=== PATIENT | male | born 1990 | race Caucasian/White ===

== ENCOUNTER 2017-12-23 06:39 | Day surgery (SDC) | payer MEDICAID ==
[~2017-12-23 06:39] MED LIST: Aloe Vera/Sodium Chloride Gel 14.1 GM Tube ONE; Dexamethasone 4 MG/ML 5 ML MDV ONE; EPINEPHrine 1 MG/ML SDV ONE; Lidocaine 1% 20 ML MDV ONE; Lidocaine 2% with EPINEPHrine 1:100,000 20 ML MDV ONE; Oxymetazoline 0.05% Nasal Spray 15 ML Bottle ONE; Thrombin (Bovine) 5,000 Unit Kit ONE
--- NOTE | 2017-12-23 07:37 | PCM.PREANE ---
Preanesthetic Assessment - Anesthesia/Transfusion/Family Hx Anesthesia History: Prior Anesthesia Without Reaction Transfusion History: No Prior Transfusion(s) - Review of Systems General: No Symptoms Pulmonary: No Symptoms Cardiovascular: No Symptoms Gastrointestinal: No Symptoms Neurological: No Symptoms Other: Reports: None - Physical Assessment NPO Status Date: 12/22/17 Height: 1.73 m Weight: 75.296 kg ASA Class: 2 Mental Status: Alert & Oriented x3 Airway Class: Mallampati = 1 Dentition: Reports: Normal Dentition ROM/Head Extension: Full Lungs: Clear to Auscultation, Normal Respiratory Effort, Rhonchi Cardiovascular: Regular Rhythm - Allergies Allergies/Adverse Reactions: Allergies Allergy/AdvReac Type Severity Reaction Status Date / Time No Known Allergies Allergy Verified 12/21/17 09:40 - Anesthesia Plan Pre-Op Medication Ordered: None - Acknowledgements Anesthesia Type Planned: General Anesthesia Pt an Appropriate Candidate for the Planned Anesthesia: Yes Alternatives and Risks of Anesthesia Discussed w Pt/Guardian: Yes Pt/Guardian Understands and Agrees with Anesthesia Plan: Yes Additional Comments: PMH: hx of asthma, no recent exacerbations, on advair (beta adrenergic blus inhaled steroid) bid for supression. PLAN: GET PreAnesthesia Questionnaire - Past Health History Medical/Surgical History: Denies Medical/Surgical History HEENT History: Reports: None Respiratory History: Reports: Asthma - Past Surgical History Head Surgeries/Procedures: Reports: None HEENT Surgical History: Reports: Naso-Sinus Surgery Other HEENT Surgeries/Procedures: nasal surgery for deviated septum - SUBSTANCE USE Smoking Status *Q: Current Some Day Smoker Tobacco Use Within Last Twelve Months: Cigarettes Recreational Drug Use History: No - HOME MEDS Home Medications: Home Meds Albuterol [Ventolin HFA] 1 - 2 puff INH ASDIRECTED PRN 12/21/17 [History] Fluticasone/Salmeterol [Advair 100-50] 1 inhalation INH BID 12/21/17 [History] - CURRENT (IN HOUSE) MEDS Current Meds: Current Medications Discontinued Medications Dexamethasone (Dexamethasone) Confirm Administered Dose 20 mg .ROUTE .STK-MED ONE Stop: 12/22/17 14:15 Epinephrine HCl (Adrenalin) Confirm Administered Dose 3 mg .ROUTE .STK-MED ONE Stop: 12/22/17 14:13 Lidocaine HCl (Xylocaine 1%) Confirm Administered Dose 20 ml .ROUTE .STK-MED ONE Stop: 12/22/17 14:15 Lidocaine HCl (Xylocaine 1%) Confirm Administered Dose 20 ml .ROUTE .STK-MED ONE Stop: 12/22/17 14:36 Lidocaine/Epinephrine (Xylocaine 2% With Epinephrine 1:100,000) Confirm Administered Dose 20 ml .ROUTE .STK-MED ONE Stop: 12/22/17 14:15 Lidocaine/Epinephrine (Xylocaine 2% With Epinephrine 1:100,000) Confirm Administered Dose 20 ml .ROUTE .STK-MED ONE Stop: 12/22/17 14:36 Oxymetazoline HCl (Afrin Original 0.05% Nasal [place]) Confirm Administered Dose 30 ml .ROUTE .STK-MED ONE Stop: 12/22/17 14:14 Oxymetazoline HCl (Afrin Original 0.05% Nasal [place]) Confirm Administered Dose 15 ml .ROUTE .STK-MED ONE Stop: 12/22/17 14:35 Sodium Chloride ([place] Saline Nasal Gel) Confirm Administered Dose 14.1 gm .ROUTE .STK-MED ONE Stop: 12/22/17 14:36 Thrombin (Thrombin-Jmi) Confirm Administered Dose 5,000 unit .ROUTE .STK-MED ONE Stop: 12/22/17 14:13
[2017-12-23] MEDS ORDERED: Propofol 200 MG/20 ML SDV ONE ×10 (08:33→13:34)
[2017-12-23] MEDS ORDERED: Dexamethasone 4 MG/ML 5 ML MDV ONE (08:38)
[2017-12-23] MEDS ORDERED: Glycopyrrolate 0.2 MG/ML SDV ONE (08:38)
[2017-12-23] MEDS ORDERED: Lidocaine 2% 5 ML SDV ONE (08:38)
[2017-12-23] MEDS ORDERED: Rocuronium 10 MG/ML 10 ML Syringe ONE (08:38)
[2017-12-23] MEDS ORDERED: Ondansetron 4 MG/2 ML SDV ONE (08:38)
[2017-12-23] MEDS ORDERED: Midazolam 1 MG/ML 2 ML SDV ONE (08:39)
[2017-12-23] MEDS ORDERED: fentaNYL 250 MCG/5 ML SDV ONE ×4 (08:39→13:00)
[2017-12-23] MEDS ORDERED: Lactated Ringers 1,000 ML IV SCH (09:00)
[2017-12-23] MEDS ORDERED: Sugammadex Sodium 200 MG/2 ML VIAL ONE (09:20)
[2017-12-23] MEDS ORDERED: Sodium Chloride 0.9% 40 ML ONE (09:27)
--- NOTE | 2017-12-23 09:40 | PCM.HPR ---
H & P Addendum review - H & P Addendum Review Date of Original H & P: 12/21/17 Date Reviewed: 12/23/17 Time Reviewed: 09:00 Patient was Examined: No Changes
--- NOTE | 2017-12-23 10:04 | PCM.OPNOTE ---
- General Post-Op/Procedure Note Condition: Good Free Text/Narrative:: Diagnosis: Nasal obstruction, deviated nasal septum, chronic sinusitis, inferior turbinate hypertrophy, rhinitis Procedure: Coblation reduction of bilateral inferior turbinates [ CPT 58080], nasal septoplasty [99687], navigation [27705], bilateral maxillary antrostomy[ 92993] bilateral anterior and posterior ethmoidectomy [ 40402], left sphenoidotomy [ 72514] left frontal sinus exploration with removal of tissue, right frontal sinus exploration [ 81034]. Surgeon: Caitlin Mahoney MD Anesthesia: GA Anesthesiologist:Tadeo ERVIN Date of procedure:12/23/2017 Indications: Nasal obstruction, deviated nasal septum, chronic sinusitis, inferior turbinate hypertrophy, rhinitis. The patient had tried maximal medical therapy orally and topically and remained symptomatic hence he was consented for the procedure as above Findings: Bilateral inferior turbinate hypertrophy; right sided deviation of the nasal septal cartilage.vertical fracture of the cartilage overlying the deviated part. Posterior left-sided vomerine spur; missing inferior cartilaginous strip posteriorly and along the maxillary crest. Left - maxillary sinus, ethmoid sinus and sphenoid sinus thick mucus; frontal recess polypoid tissue -removed. Right - minimal edema of right maxillary sinus mucosa. Ethmoid mucosa and frontal recess mucosa healthy. An informed consent was obtained. A time out was performed and the patient was brought back to the operating room. Gen. anesthesia was administered with an endotracheal tube. The patient was then prepped and draped in a standard fashion. A 0 degree rigid nasal endoscope was used to examine bilateral nasal cavities and photo documentation was obtained. Bilateral inferior turbinates were infilatrated with 1% lidocaine - 2 mls were injected on each side. The left inferior turbinate was addressed first. A PTR coblation wand with tip dipped in AYR Gel was used at setting of 6 :2 for Coblation and coagulation respectively. The point of entry was coagulated and wand was inserted till the second marking. Two keller were created in the single channel. The inferior turbinate was visibly shrunk. Similar procedure was repeated on the right side with visible reduction in size of turbinates. Bilateral nasal cavities were then packed with oxymetazoline 0.05% soaked cottonoid pledgets. After an appropriate period of decongestion the pledgets were removed. Nasal septum was infiltrated with 2% lidocaine 1: 100, 000 epinephrine in a standard fashion-a total of 4 mils was used. Bilateral nasal cavities were packed with oxymetazoline 0.05% soaked cottonoid pledgets. Bilateral eyes were left exposed and lubricating ointment was inserted into the eyes. The pledgets were then removed. A left sided [place]am incision was performed. A left sided mucoperichondrial flap was elevated- dissection was commenced with 2 mm osteotome and further carried out with combination of ob and [place] elevators. Posteriorly the flap was continued as a muco periosteal flap. A posterior chondrotomy was performed. Right-sided mucoperiosteal flap was elevated. A han scissor was used and the perpendicular plate of the ethmoid was removed. The vomer along with left-sided spur was also removed. A vertical incision was made in the cartilage a few millimeters behind the mucosal incision. Contralateral mucoperichondrial flap was elevated posteriorly. Approximately 4 mm of vertical strip of deviated cartilage was resected and removed including the vertical fracture line. Subsequent to this the nasal septum was positioned towards the midline. Flap incision was sutured with 3-0 plain gut on Steven needle. The [employer] navigation system was set up and the Tracker was fixed to the fore head as per protocol and successful registration was obtained. The left middle turbinate axilla and the head of middle turbinate were infiltrated with 2% lidocaine and 1 in 100,000 epinephrine-a total of 1 ml was used. Similar injections were performed on the right side. A cottonoid pledget soaked in 1: 10 000 epinephrine each was placed in the middle meatus, draping over the middle turbinate axilla and one in the region of the sphenoethmoid recess - this was done bilaterally. The left side was addressed first. After appropriate period of decongestion the cottonoid pledgets were removed. The middle turbinate was gently medialized with freer elevator and the 0 rigid nasal endoscope was introduced into the middle meatus. The posterior free edge of the uncinate process was identified and medialized with a ball probe. A right sided pediatric backbiter was used to remove the uncinate process at the junction of the horizontal and vertical part. A straight shot tri-cut blade with navigation attached to it was then used to debride the vertical attachment of the uncinate process up to the attachment of Agger nasi cell. A ball probe was then used to identified the left maxillary sinus ostium The horizontal part of the uncinate process was then further dissected away with a ball probe and then with a combination of microdebrider and cold steel dissection. The 30 rigid endoscope was used to examine the maxillary ostium - findings as above. The maxillary sinus was suctioned and thoroughly irrigated with saline. A 0 degree nasal endoscope was used and next the natural ostium of the left bulla ethmoidalis was identified and down fractured with a curette. Further removal of the bulla was performed with a microdebrider blade and anterior ethmoid cells were removed. The mucosa of bulla and anterior ethmoid cells was edematous. The posterior ethmoids were entered by penetrating the ground lamella at the junction of horizontal and vertical part with a curette; further dissection was carried out with a microdebrider and the posterior ethmoid cells were cleared sequentially. Dissection inferior and medial was continued posteriorly and a sphenoidotomy was performed. This was minimally enlarged inferiorly and laterally towards the posterior ethmoid cells. Mucoid secretions were suctioned. Using a 30 degree nasal endoscope the Left frontal sinus ostium was identified posterior to the agger nasi cell and anterior to the supra bullar cell. Cell partitions were removed with a thru cut and blakesly wild; polypoid mucosa was identified and removed. The left middle meatus was then finally irrigated with the warm saline and inspected with rigid endoscope. No loose bone chips were identified. At all times the position of instruments was confirmed with [employer] navigation and a combination of straight, 90 and 70 degrees suctions and ostium seekers - all navigated were used as required at appropriate times to assist with identifying landmarks and dissection. Attention was then directed towards the right side. The cottonoid pledgets were removed. The middle turbinate was gently medialized with freer elevator and the 0 rigid nasal endoscope was introduced into the middle meatus. The posterior free edge of the uncinate process was identified and medialized with a ball probe. A left sided pediatric backbiter was used to remove the uncinate process at the junction of the horizontal and vertical part. A straight shot tri-cut blade with navigation attached to it was then used to debride the vertical attachment of the uncinate process up to the attachment of Agger nasi cell. A ball probe was then used to identified the left maxillary sinus ostium The horizontal part of the uncinate process was then further dissected away with a ball probe and then with a combination of microdebrider and cold steel dissection. The 30 rigid endoscope was used to examine the maxillary ostium - findings as above. The maxillary sinus was thoroughly irrigated with saline. A 0 degree nasal endoscope was used and next the natural ostium of the left bulla ethmoidalis was identified and down fractured with a curette. Further removal of the bulla was performed with a microdebrider blade and anterior ethmoid cells were removed. The mucosa of bulla and anterior ethmoid cells was healthy. The posterior ethmoids were entered by penetrating the ground lamella at the junction of horizontal and vertical part with a curette; further dissection was carried out with a microdebrider and the posterior ethmoid cells were cleared sequentially. Right frontal recess area was inspected with 30 endoscope. Cellular partitions were removed and mucosa was healthy. The right middle meatus was then finally irrigated with the warm saline and inspected with rigid endoscope. No loose bone chips were identified. As on the left side at all times the position of instruments was confirmed with [employer] navigation and a combination of straight, 90 and 70 degrees suctions and ostium seekers - all navigated were used as required at appropriate times to assist with identifying landmarks and dissection. Post nasal space was suctioned clear of blood bilaterally and per orally. Merogel was injected in larry MM Bacitracin ointment was applied to the inferior turbinates bilaterally. Bilateral Moctezuma splints were inserted and held in place with 2.0 Prolene suture. Drip pad was applied. This concluded the procedure and the patient was turned over to the anesthesiologist for recovery. Specimens: none IV fluids: 1600 ml Blood loss: 20 mls Blood products: nil Disposition: PACU for recovery Follow up: As planned.
[2017-12-23] MEDS ORDERED: Labetalol 100 MG/20 ML MDV ONE (10:43)
[2017-12-23] MEDS ORDERED: Sodium Chloride 0.9% 20 ML ONE (14:14)
[2017-12-23] MEDS ORDERED: fentaNYL 100 MCG/2 ML SDV IVPUSH PRN (14:39)
[2017-12-23] MEDS ORDERED: HYDROmorphone 2 MG/ML SDV IVPUSH ONE (14:40)
[2017-12-23] MEDS ORDERED: Ibuprofen 400 MG Tab PO PRN (14:40)
[2017-12-23] MEDS ORDERED: HYDROmorphone 1 MG/ML Syringe IVPUSH ONE (14:41)
[2017-12-23] MEDS ORDERED: Acetaminophen 1,000 MG in Premix Bag 1 BAG IV ONE (15:00)
--- NOTE | 2017-12-23 15:38 | PCM.POSTAN ---
POST ANESTHESIA ASSESSMENT - MENTAL STATUS Mental Status: Alert, Oriented - RESPIRATORY Respiratory Status: Respiratory Rate WNL - CARDIOVASCULAR CV Status: Pulse Rate WNL, Blood Pressure Stable - GASTROINTESTINAL GI Status: No Symptoms - PAIN Pain Score: 0 - POST OP HYDRATION Hydration Status: Adequate & Stable - OBSERVATIONS Free Text/Narrative:: no anesthesia problems
--- NOTE | 2017-12-23 17:18 | PCM48HPAN ---
Post Anesthesia Note - EVALUATION WITHIN 48HRS OF ANESTHETIC Vital Signs in Normal Range: Yes Patient Participated in Evaluation: Yes Respiratory Function Stable: Yes Airway Patent: Yes Cardiovascular Function Stable: Yes Hydration Status Stable: Yes Pain Control Satisfactory: Yes Nausea and Vomiting Control Satisfactory: Yes Mental Status Recovered: Yes Resp Rate: 14
[2017-12-23 17:59] VITALS: BP 113/58
== END 2017-12-23 17:30 | disposition home or self-care (01) ==
LOC: MW.SDS 06:39
PROVIDERS: ATTEND Otolaryngology
DX: J32.9 Chronic sinusitis, unspecified (principal); J34.89 Other specified disorders of nose and nasal sinuses; J34.2 Deviated nasal septum; J34.3 Hypertrophy of nasal turbinates; Q67.4 Other congenital deformities of skull, face and jaw; Z87.891 Personal history of nicotine dependence; R43.8 Other disturbances of smell and taste
CPT/HCPCS: 30801; 31255; 61782; A9270; J0171; J1100; J2250; J2405; J3010; J7120; J2704